=== PATIENT | male | born 1940 | race Caucasian/White ===

== ENCOUNTER → 2017-05-02 | Outpatient (CLI) | payer OTHER, BC ==
[~2017-05-02] VITALS: Ht 180.3 cm; Wt 97.5 kg
[~2017-05-02] MED LIST: ATIVAN0.5 MG PO; AZOPT OPHTH1 %/10 M1 OPHTHALMIC; COUMADIN 1MG TAB1 M1 PO; COUMADIN 5 MG TA5 M1 PO; DILAUDID2 M1 PO; DILTIAZEM 24HR240 MG; DORZOLAMIDE HCL10 ML OPHTHALMIC; FISH OIL 1,001000 M2 PO; GLUCOSAMINE HC500 MG PO; KEFLEX500 MG PO; LANOXIN; NORCO 5-325 TA1 EACH PO; OFEV150 MG PO; OMEPRAZOLE20 M1 PO; PREDNISONE 20 M20 MG PO; PROBIOTIC1 EAC1 PO; TESTIM5 GM OPHTHALMIC; TRAVATAN 0.004%5 ML; TRAVATAN Z5 ML OPHTHALMIC; XOLAIR150 MG SUBQ
--- NOTE | ~2017-05-02 | HC ---
[facility] [place] [address] CONSULTATION Name: BERNIE NAVAS Room #: REG [facility]#: [id number] Admission: 05/02/17 Attend Phys: Josef Gipson MD Discharge: Date of : 40 Report #: [id number] THIS REPORT FOR: //name// CC: Elia Gipson DATE OF SERVICE: 05/02/2017 DATE OF SERVICE: 05/02/2017 CHIEF COMPLAINT: Right hip pain with radiation to the anterior thigh, also into the posterior thigh. HISTORY OF PRESENT ILLNESS: The patient is a pleasant 77-year-old who Dr. Elia Waters asked me to see today for pain in his hip. He describes that his pain is radiating into the groin as well. It is difficult for him when he gets in and out of the car. Most of the rest of the time, the pain is dull and aching and he scores it anywhere from a 2 at its lowest to a 7/10. Descriptors include stabbing when getting up and down out of a car or out of a chair, and gnawing the rest the time. Dr. Waters felt this was lumbar radiculopathy and suggested an epidural. The patient remains on Coumadin today. He has had no other treatment so far for his pain other than remaining active. Because of his Coumadin, he has been limiting the use of nonsteroidal anti-inflammatory drugs. MEDICATIONS: Probiotic, fish oil, glucosamine, testosterone, brinzolamide eye drops, dorzolamide eye drops, travoprost, Xolair, Ofev, omeprazole, Coumadin, diltiazem. ALLERGIES: None. PAST MEDICAL HISTORY: Chronic atrial fibrillation, chronic kidney disease, chronic sinusitis, gastroesophageal reflux disease without esophagitis, history of renal colic, idiopathic pulmonary fibrosis, primary male hypogonadism, interstitial pneumonitis. SOCIAL HISTORY: He denies use of tobacco, having quit in 1969. Denies use of alcohol. He is retired. PHYSICAL EXAMINATION: GENERAL: A pleasant and outgoing 77-year-old. He is able to move from sitting to standing position and ambulate only with mild antalgic features to his gait. [facility] [address] [place] [address] CONSULTATION Name: BERNIE NAVAS Room #: REG [facility].#: [id number] Admission: 05/02/17 Attend Phys: Josef Gipson MD Discharge: Date of : 40 Report #: [id number] Range of motion of the lumbar spine is performed without significant discomfort. VITAL SIGNS: He is noted to be 5 feet 11 inches and 180 pounds, which is a BMI of 30. Blood pressure 111/83, heart rate 77, respirations 16. MUSCULOSKELETAL: Examination of the spine reveals good range of motion. Straight leg raising is negative for radiculopathy at this time. Examination of the right hip reveals pain with both internal and external rotation radiating into the anterior thigh and groin. Minimal pain over the trochanter, minimal pain over the sacroiliac joint. Sensation and strength in lower extremities are normal. Deep tendon reflexes are trace bilaterally at knees and ankles. IMPRESSION: 1. Low back pain with degenerative disease. Condition includes concern for lumbar radiculopathy following an upper lumbar distribution. 2. Atrial fibrillation. 3. Pain in the right hip, which may be hip arthropathy. This could be the cause of his underlying pain and I think we should at least get a plain film x-ray before we perform the injection. 4. Coumadin use for atrial fibrillation and needs to be discontinued prior to epidural injection. PLAN: Plan is for him to return in 1 week after we take x-rays of his hip and I will perform an epidural injection for him at that time. May consider a hip injection sometime in the future if we feel that his hip is the more likely pain generator. This is a common diagnostic challenge and injections can be both diagnostic as well as therapeutic. By: [id number] Josef Gipson MD /nt
[2017-05-02 08:55] VITALS: BP 111/83
== END | disposition home or self-care (01) ==
LOC: PAIN 06:54
DX: M51.16 Intervertebral disc disorders with radiculopathy, lumbar region (principal); M25.551 Pain in right hip; I48.2 Chronic atrial fibrillation; N18.9 Chronic kidney disease, unspecified; J32.8 Other chronic sinusitis; K21.9 Gastro-esophageal reflux disease without esophagitis; H40.9 Unspecified glaucoma; Z87.442 Personal history of urinary calculi; Z79.01 Long term (current) use of anticoagulants; Z79.899 Other long term (current) drug therapy; Z90.49 Acquired absence of other specified parts of digestive tract; Z98.890 Other specified postprocedural states; Z85.828 Personal history of other malignant neoplasm of skin; Z86.711 Personal history of pulmonary embolism

== ENCOUNTER → 2017-05-23 | Outpatient (CLI) | payer OTHER, BC ==
[~2017-05-23] VITALS: Ht 180.3 cm; Wt 93.6 kg
--- NOTE | ~2017-05-23 | HPC ---
[facility] [address] PAIN MANAGEMENT CONSULTATION Name: BERNIE NAVAS Room #: REG [facility] Jessica.#: [id number] Admission: 05/23/17 Attend Phys: Josef Gipson MD Discharge: Date of : 40 Report #: [id number] THIS REPORT FOR: //name// CC: Elia Gipson DATE OF REGISTRATION: 05/23/2017. CHIEF COMPLAINT: Followup visit for lumbar radiculopathy as well as right hip pain. HISTORY OF PRESENT ILLNESS: The patient is here today for an epidural injection. We discussed at his last visit. He has pain consistent with radiculopathy, but also has hip pain that has an exam consistent with some arthropathy. There are some degenerative changes, greater on the right seen on x-rays that I ordered on 05/02/2017. We have elected to proceed today with an epidural injection to treat his radiculopathy and will pursue the hip if response is limited. We reviewed his medications. He is on Coumadin, which was discontinued and INR today is 1.0. We will proceed today with his epidural injection under fluoroscopic guidance. Procedure has been explained. His symptoms are unchanged from his visit on 05/02/2017. PHYSICAL EXAMINATION: GENERAL: Pleasant, outgoing gentleman. He moves easily from sitting to standing position, but walks with mild antalgic gait. VITAL SIGNS: His blood pressure 125/87, heart rate 76, respirations 16. EXTREMITIES: Tenderness in the buttock cheek is noted. Sensation and strength are normal. Straight leg raising is once again negative. IMPRESSION: 1. Low back pain with radiation into the right hip with radiculopathy and lumbar distribution. 2. Atrial fibrillation. 3. Right hip arthropathy. 4. Coumadin has been discontinued with an INR of 1.0. PROCEDURE: Epidural steroid injection under fluoroscopic guidance. DESCRIPTION OF PROCEDURE: The patient was taken to the fluoroscopic suite, placed prone, skin prepped with ChloraPrep. Skin anesthetized over the L4-L5 interspace to the right of midline. A 20-gauge Tuohy epidural needle advanced in the epidural space with loss of resistance. There was no blood or CSF aspirated and injected 1.5 mL of Omnipaque with excellent spread along the L4-L5, L5-S1 lateral recess. It was then followed by 3 mL of 0.5% lidocaine mixed with 80 mg of triamcinolone. He tolerated the procedure well and was [facility] [address] [place] [address] PAIN MANAGEMENT CONSULTATION Name: BERNIE NAVAS Room #: REG CLEmilia Brown#: [id number] Admission: 05/23/17 Attend Phys: Josef Gipson MD Discharge: Date of : 40 Report #: [id number] taken to recovery room for observation. He was instructed to restart his Coumadin today. We will see him on an as needed basis in the future. <ELECTRONICALLY SIGNED> By: Josef Gipson MD 05/25/17 1551 [id number] Josef Gipson MD /niles
[2017-05-23 08:30] LABS: PROTIME 10.7 Seconds (9.3-11.4)
[2017-05-23 08:50] VITALS: BP 125/87
== END | disposition home or self-care (01) ==
LOC: PAIN 06:05
PROVIDERS: Anesthesiology Pain Medicine
DX: M54.16 Radiculopathy, lumbar region (principal); I48.91 Unspecified atrial fibrillation; Z79.899 Other long term (current) drug therapy

== ENCOUNTER → 2017-06-30 | Outpatient (CLI) | payer OTHER, BC ==
[~2017-06-30] VITALS: Ht 177.8 cm; Wt 90.1 kg
--- NOTE | ~2017-06-30 | HPC ---
[facility] [place] [address] PAIN MANAGEMENT CONSULTATION Name: BERNIE NAVAS Room #: REG ADELE Lopez.#: [id number] Admission: 06/30/17 Attend Phys: Josef Gipson MD Discharge: Date of : 40 Report #: [id number] THIS REPORT FOR: //name// CC: Elia Gipson DATE OF SERVICE: 06/30/2017 Follow up visit for lumbar radiculopathy as well as right hip pain. The patient returns to pain clinic today for a right hip injection. He had some response for his epidural injection and we as noted at last visit have identified bilateral hip degenerative changes, which were worse on the right. His pain now is more consistent with hip arthropathy with radiating pain into the groin, I have agreed to provide him with a hip injection under fluoroscopic guidance. He is remained on his Coumadin. I will use a 25-gauge needle, I believe this is safe. MEDICATIONS: Reviewed and reconciled. ALLERGIES: Noted none. PHYSICAL EXAMINATION: He really looks fit today, he is wearing his work clothes and is anxious to go to pulmonary rehab. I have told him to wait 1 day. He is able to easily get up from chair and walk, but he has pain when he tries to swing his leg on to the bed. He has pain with external rotation localized over the hip. His vital signs are blood pressure 113/77, heart rate 74, and respirations 16. IMPRESSION: 1. X-ray evidence of osteoarthritis of the hips bilateral, worse on the right. 2. Lumbar radiculopathy, resolved. 3. Atrial fibrillation. 4. Coumadin. It should be noted that the patient's BMI is 28 and he does not smoke. He is not a fall risk. PROCEDURE: Right hip injection under fluoroscopic guidance. Skin was prepped with ChloraPrep. Skin was anesthetized. A 25-gauge needle was advanced in the capsule of the right hip. It was repositioned twice until was identified. I then injected a total of 4 mL of 0.5% bupivacaine mixed with [facility] [place] [address] PAIN MANAGEMENT CONSULTATION Name: ELOISEBERNIE Room #: REG Emilia Brown#: [id number] Admission: 06/30/17 Attend Phys: Josef Gipson MD Discharge: Date of : 40 Report #: [id number] 40 mg of triamcinolone. He tolerated the procedure well and was observed for a short time and discharged. Follow up as needed. We will see how much relief he gets from the hip injection, some of this may be radiculopathy. By: [id number] Josef Gipson MD /nt
[2017-06-30 12:32] VITALS: BP 135/93
== END | disposition home or self-care (01) ==
LOC: PAIN 07:14
DX: M16.11 Unilateral primary osteoarthritis, right hip (principal); M54.16 Radiculopathy, lumbar region; I48.91 Unspecified atrial fibrillation; Z79.01 Long term (current) use of anticoagulants; Z79.891 Long term (current) use of opiate analgesic; Z79.899 Other long term (current) drug therapy; Z98.890 Other specified postprocedural states

== ENCOUNTER → 2017-10-06 | Outpatient (CLI) | payer OTHER, BC ==
[~2017-10-06] VITALS: Ht 180.3 cm; Wt 93.1 kg
--- NOTE | ~2017-10-06 | HPC ---
[facility] [place] [address] PAIN MANAGEMENT CONSULTATION Name: BERNIE NAVAS Room #: REG Emilia Lopez.#: [id number] Admission: 10/06/17 Attend Phys: Josef Gipson MD Discharge: Date of : 40 Report #: [id number] THIS REPORT FOR: //name// CC: Elia Gipson DATE OF SERVICE: 10/06/2017 Followup visit for osteoarthritis of the right hip. The patient returns to pain clinic today for repeat injection. His last injection was on 06/30. He had remarkable improvement, which has been persistent up until just a few weeks ago. Pain began to return. He would like to get an injection in lieu of more aggressive options. PQRS REVIEW: All medications were reviewed and reconciled. He is on a blood thinner, which we have agreed is not an impediment to his injection today. He is on no other pain medications at this time. All medications were prescribed by other physicians. ALLERGIES: None. PHYSICAL EXAMINATION: Vital signs, blood pressure 113/86, heart rate is 77, oxygen saturation 94%. BMI is 28.6. Pain intensity is 3 involving the lower extremity osteoarthritis of the hip. He does not use tobacco or alcohol. He does not use opioid medication. IMPRESSION: Right hip osteoarthritis. PROCEDURE: Right hip injection under fluoroscopic guidance. Skin was prepped with ChloraPrep and anesthetized. A 25-gauge needle was gently advanced into the joint capsule just at the junction of the femoral neck and head. 1 mL of Omnipaque was injected to demonstrate proper spread followed then by 4 mL of 0.5% bupivacaine mixed with 40 mg of triamcinolone. He tolerated the procedure well and was observed for 30 minutes and discharged with a followup as needed. <ELECTRONICALLY SIGNED> By: Josef Gipson MD 10/17/17 1408 [id number] Josef Gipson MD /nt
[2017-10-06 13:31] VITALS: BP 136/76
== END | disposition home or self-care (01) ==
LOC: PAIN 07:09
DX: M16.11 Unilateral primary osteoarthritis, right hip (principal); Z79.01 Long term (current) use of anticoagulants

== ENCOUNTER → 2018-09-18 | Outpatient (CLI) | payer OTHER, BC ==
[~2018-09-18] VITALS: Ht 177.8 cm; Wt 90.6 kg
[~2018-09-18] MED LIST changes: +AZITHROMYCIN500 MG PO; +ELIQUIS5 MG PO
--- NOTE | ~2018-09-18 | HPC ---
[facility] [place] [address] PAIN MANAGEMENT CONSULTATION Name: BERNIE NAVAS Room #: REG Emilia Jessica.#: [id number] Admission: 09/18/18 ������������������ Attend Phys: Josef Gipson MD Discharge: ������������������ Date of : 40 Report #: [id number] THIS REPORT FOR: //name// CC: Elia Gipson DATE OF SERVICE: 09/18/2018 CHIEF COMPLAINT: Followup visit for right hip osteoarthritis. The patient returns to pain clinic today for repeat hip injection. He has done well with these injections receiving significant benefit each time. Last injection was about 3 months ago. He is not a surgical candidate, has idiopathic interstitial pulmonary fibrosis. PQRS REVIEW: He has osteoarthritis of the right hip as his primary pain generator. He is not a fall risk and has not fallen in the last 3 months. He is on Eliquis, which we allowed him to remain on for the hip injection. He has a history of atrial fibrillation. He has not treated for hypertension, is not on opioid medication. He does not use tobacco, drinks alcohol on special occasions. PHYSICAL EXAMINATION: VITAL SIGNS: 5 feet 10 inches, 199 pounds, BMI is 28.7, blood pressure 121/84, heart rate 97, respirations 20, O2 sat 87. Pain intensity 4/10. He moves independently from sitting to standing position, ambulates with an antalgic gait. Pain is noted in the right hip with internal and external rotation. IMPRESSION: Right hip osteoarthritis. PROCEDURE: Injection, right hip under fluoroscopic guidance. PROCEDURE: He was taken to fluoroscopic suite, placed supine, skin was prepped with ChloraPrep. Skin was anesthetized over the right hip. A 22 gauge needle was gently advanced into the joint capsule. It was repositioned until an excellent arthrogram was achieved and then it was followed by 4 mL of 0.5% bupivacaine mixed with 40 mg of triamcinolone. He tolerated the procedure well. Pain was 0 in recovery room. Followup visit as needed. ��������������������������������������������� ���������������������������������������� By: ��������������������������������������������� 1757 0930 Josef Gipson MD /nt
[2018-09-18 08:55] VITALS: BP 121/84
--- NOTE | 2018-09-18 09:01 | NUR ---
Pain Clinic Assessment: 1. History of Osteoarthritis: Left Lower Extremity Right Lower Extremity History of Rheumatoid Arthritis: Not Applicable 2. Height: 5 ft. 10 in. 177.8 cm. Weight: 199.8 lb. oz. 90.629 kg. Patient's BMI: 28.7 3. Vital Signs: BP: 121/84 Pulse: 97 Resp: 20 Temp: 02 Sat: 87 ECG Mon: 4. Pain Intensity: 4 5. Fall Risk: Dizziness: N Needs help standing or walking: N Fallen in the last 3 months: N Fall risk comments: 6. Patient on Blood Thinner: ISAÍASQUIS 7. History of Hypertension: N 8. Opioid Therapy greater than 6 weeks: N Opiate Contract Signed: 9. Risk Assessment Tool Provided: Opioid Risk Tool 10. Functional Assessment Tool: 11. Recreational Drug Use: Never Drug Type: Tobacco Use: Never Smoker Tobacco Type: Amount or Packs/day: How Many Years: Alcohol Use: Yes Frequency: Special Occasions Quant:
== END | disposition home or self-care (01) ==
LOC: PAIN 06:45
DX: M16.11 Unilateral primary osteoarthritis, right hip (principal); G89.29 Other chronic pain; I48.91 Unspecified atrial fibrillation; Z79.01 Long term (current) use of anticoagulants; Z79.899 Other long term (current) drug therapy

== ENCOUNTER 2018-09-27 16:15 | Emergency (ER) | payer OTHER, BC ==
[~2018-09-27] VITALS: Ht 177.8 cm; Wt 89.8 kg
[2018-09-27] MEDS ORDERED: PREDNISONE 10 M10 MG PO (17:36)
[2018-09-27 20:21] VITALS: BP 150/105
== END 2018-09-27 20:22 | disposition home or self-care (01) ==
LOC: ER 16:15
DX: R04.0 Epistaxis (principal); I48.91 Unspecified atrial fibrillation; Z90.49 Acquired absence of other specified parts of digestive tract

== ENCOUNTER → 2019-02-08 | Outpatient (CLI) | payer OTHER, BC ==
[~2019-02-08] VITALS: Ht 177.8 cm; Wt 91.4 kg
[~2019-02-08] MED LIST changes: +PREDNISONE 10 M10 MG PO
--- NOTE | ~2019-02-08 | HPC ---
[facility] [place] [address] PAIN MANAGEMENT CONSULTATION Name: BERNIE NAVAS Room #: REG ADELE Brown#: [id number] Admission: 02/08/19 ������������������ Attend Phys: Josef Gipson MD Discharge: ������������������ Date of : 40 Report #: [id number] THIS REPORT FOR: //name// CC: Josef Duarte DATE OF SERVICE: 02/08/2019 Followup visit for osteoarthritis, right hip. The patient is here today for hip injection. He has done well with these injections in the past. He is hoping to avoid surgery. He reports that the pain intensity varies with activities. Worst position for him is prolonged sitting. Riding in a car is difficult. Today, the pain is not so severe, it is 1/10 but it can be much higher than that depending on activities. MEDICATIONS: Reviewed and reconciled including prednisone, Eliquis, azathioprine, probiotic, glucosamine, eyedrops, omeprazole, and diltiazem. PQRS REVIEW: Positive for osteoarthritis involving both hips, right worse than left. His height is 5 feet 10 inches, 210 pounds with a BMI of 28.9. His vital signs are blood pressure 124/74, heart rate 90, respirations 18, O2 sat 93. He has idiopathic pulmonary fibrosis and is on nasal oxygen. Pain intensity at this moment 1/10. He is not a fall risk. His blood thinner, Eliquis has not been discontinued and I have agreed to perform the hip injection while on the medication. He denies history of hypertension, and he also denies use of opioid medications. He did complete an opioid risk tool, however, and is considered at low risk should we decide to use them for treatment. SOCIAL HISTORY: He denies use of tobacco and enjoys a glass of alcohol occasionally in a social setting. PHYSICAL EXAMINATION: VITAL SIGNS: As noted above. GENERAL: Pleasant gentleman. CHEST: Reveals inspiratory and expiratory crackles and wheezing. CARDIAC: Rhythm is irregularly irregular consistent with atrial fibrillation. EXTREMITIES: Examination of the right hip reveals significant pain with hip flexion and internal and external rotation. Pain radiates down the anterior thigh. [facility] [address] [place] [address] PAIN MANAGEMENT CONSULTATION Name: BERNIE NAVAS Mariely [id number] Admission: 02/08/19 ������������������ Attend Phys: Josef Gipson MD Discharge: ������������������ Date of : 40 Report #: [id number] IMPRESSION: 1. Right hip osteoarthritis. 2. Idiopathic pulmonary fibrosis. 3. Atrial fibrillation, on anticoagulation therapy. 4. Chronic kidney disease. RECOMMENDATION: He should avoid nonsteroidal anti-inflammatory drugs. Injection of triamcinolone seems quite reasonable. PROCEDURE: Right hip injection under fluoroscopic guidance. He was taken to the fluoroscopic suite and placed supine. Skin was prepped with ChloraPrep overlying the right hip. A 25-gauge needle was gently advanced into the joint capsule below the junction of the head and the neck of the femur. I injected 0.25 mL of Omnipaque to demonstrate an arthrogram. This was then followed by 3 mL of 0.5% bupivacaine mixed with 40 mg of triamcinolone. He tolerated the procedure well and was observed for 30 minutes and discharged. There were no complications. Pain score 0 at discharge. ��������������������������������������������� ���������������������������������������� By: ��������������������������������������������� [id number] Jsoef Gipson MD /nt
[2019-02-08 12:52] VITALS: BP 124/74
--- NOTE | 2019-02-08 13:02 | NUR ---
Pain Clinic Assessment: 1. History of Osteoarthritis: Left Lower Extremity Right Lower Extremity History of Rheumatoid Arthritis: Not Applicable 2. Height: 5 ft. 10 in. 177.8 cm. Weight: 201.6 lb. oz. 91.445 kg. Patient's BMI: 28.9 3. Vital Signs: BP: 124/74 Pulse: 90 Resp: 18 Temp: 02 Sat: 93 ECG Mon: 4. Pain Intensity: 1 5. Fall Risk: Dizziness: N Needs help standing or walking: N Fallen in the last 3 months: N Fall risk comments: 6. Patient on Blood Thinner: ISAÍASQUSAROJ 7. History of Hypertension: N 8. Opioid Therapy greater than 6 weeks: N Opiate Contract Signed: 9. Risk Assessment Tool Provided: LOW RISK 0/3 10. Functional Assessment Tool: 11. Recreational Drug Use: Never Drug Type: Tobacco Use: Never Smoker Tobacco Type: Amount or Packs/day: How Many Years: Alcohol Use: Yes Frequency: Monthly Quant: 1
== END | disposition home or self-care (01) ==
LOC: PAIN 06:46
DX: M16.11 Unilateral primary osteoarthritis, right hip (principal); G89.29 Other chronic pain; I48.91 Unspecified atrial fibrillation; N18.9 Chronic kidney disease, unspecified; Z79.01 Long term (current) use of anticoagulants; Z79.899 Other long term (current) drug therapy; Z87.09 Personal history of other diseases of the respiratory system

== ENCOUNTER → 2019-03-15 | Outpatient (CLI) | payer OTHER, BC ==
[~2019-03-15] VITALS: Ht 180.3 cm; Wt 88.9 kg
[~2019-03-15] MED LIST changes: +TRAMADOL 50 MG50 MG PO; +ZANAFLEX4 MG PO
--- NOTE | ~2019-03-15 | HPC ---
[facility] [place] [address] PAIN MANAGEMENT CONSULTATION Name: BERNIE NAVAS Room #: REG STEFFEmilia Brown#: [id number] Admission: 03/15/19 Attend Phys: Josef Gipson MD Discharge: Date of : 40 Report #: [id number] THIS REPORT FOR: //name// CC: Physician staff Josef SPENCE DATE OF SERVICE: 03/15/2019 Followup visit for recurring lumbar radiculopathy. The patient returns to pain clinic today and presenting with symptoms consistent with lumbar radiculopathy. The pain is in the low back and radiates down his leg all the way into the lower leg. The intensity is significant with activities. He has become much more limited in his activities. His pulmonary disease is worsening. He has interstitial fibrosis. He is now on oxygen around the clock. He normally takes Eliquis, but discontinued it for 5 days in anticipation of an injection today. PQRS REVIEW: 1. History of diffuse osteoarthritis involving bilateral lower extremities, hips and knees. He has been treated in our clinic for this in the past. 2. His BMI is stable at 27.3. 3. Vital signs: Blood pressure is 125/79, heart rate 73, respirations 14. He has 2 liters of nasal cannula and his oxygen is 100%, with supplement. 4. Pain intensity is 1 sitting, 8/10 with activities including simple standing. 5. He is a fall risk and needs help standing and walking. 6. Blood thinner, Eliquis, discontinued for 5 days. 7. Hypertension. 8. No opioid therapy at this time. 9. Risk assessment tool completed scoring 0. 10. Functional assessment scores 20/70. 11. Denies use of tobacco and drinks alcohol occasionally in a social setting. PHYSICAL EXAMINATION: GENERAL: He is a very pleasant gentleman, little short of breath even with the nasal oxygen. VITAL SIGNS: Blood pressure 125/79, heart rate 73. HEENT: His pupils are equal, round, reactive to light. EOMs are intact. Mucous membranes are moist. Nasal cannula in place. NECK: Supple. There is no adenopathy. CHEST: Clear, although there are diffuse crackles and wheezes on both [facility] [address] [place] [address] PAIN MANAGEMENT CONSULTATION Name: BERNIE NAVAS Room #: REG [facility].#: [id number] Admission: 03/15/19 Attend Phys: Josef Gipson MD Discharge: Date of : 40 Report #: [id number] inspiration and expiration. CARDIAC: Rhythm is irregularly irregular consistent with atrial fibrillation. ABDOMEN: Soft, no organomegaly. BACK: Tender across the lumbosacral segment. Positive straight leg raising is noted primarily on the right following an L3-L4, L5-S1 distribution. We have x-rays of the lumbar spine but they are relatively distant, dating back to 2017, which shows multiple levels of bilateral neural foraminal stenosis and multilevel spinal stenosis, particularly at L3-L4 with the thecal sac measures 5 mm in AP diameter. IMPRESSION: 1. Lumbar radiculopathy related to spinal stenosis and neural foraminal narrowing. 2. Pulmonary fibrosis, on oxygen therapy. 3. Severe and significant diffuse osteoarthritis involving bilateral hips. 4. Atrial fibrillation, off anticoagulation therapy for injection. 5. Chronic kidney disease. PLAN AND PROCEDURE: Lumbar epidural injection at L4-L5 under fluoroscopic guidance. He was taken to fluoroscopic suite, placed prone, skin prepped with ChloraPrep. Skin was anesthetized over the L4-L5 interspace and a 20-gauge Tuohy epidural needle advanced into the epidural space with loss of resistance technique. There was no blood or CSF aspirated. A 1 mL of Omnipaque was injected. Good spread of dye was observed into the epidural space, was followed by 3 mL of 0.5% lidocaine mixed with 80 mg triamcinolone. He tolerated the procedure well and was observed for 45 minutes and discharged. Followup visit planned in the pain clinic on an as needed basis. By: [id number] Josef Gipson MD /nt
[2019-03-15 09:36] VITALS: BP 125/79
--- NOTE | 2019-03-15 09:53 | NUR ---
Pain Clinic Assessment: 1. History of Osteoarthritis: Left Lower Extremity Right Lower Extremity History of Rheumatoid Arthritis: Not Applicable 2. Height: 5 ft. 11 in. 180.3 cm. Weight: 196.0 lb. oz. 88.905 kg. Patient's BMI: 27.3 3. Vital Signs: BP: 125/79 Pulse: 73 Resp: 14 Temp: 02 Sat: 100 ECG Mon: 4. Pain Intensity: 1 SITTING 8 ACTIVITY 5. Fall Risk: Dizziness: N Needs help standing or walking: Y Fallen in the last 3 months: N Fall risk comments: 6. Patient on Blood Thinner: ISAÍASQUIS 7. History of Hypertension: N 8. Opioid Therapy greater than 6 weeks: N Opiate Contract Signed: 9. Risk Assessment Tool Provided: LOW RISK 0/3 10. Functional Assessment Tool: 11. Recreational Drug Use: Never Drug Type: Tobacco Use: Never Smoker Tobacco Type: Amount or Packs/day: How Many Years: Alcohol Use: Yes Frequency: Quant:
== END | disposition home or self-care (01) ==
LOC: PAIN 06:50
DX: M54.16 Radiculopathy, lumbar region (principal); M48.061 Spinal stenosis, lumbar region without neurogenic claudication; M99.73 Connective tissue and disc stenosis of intervertebral foramina of lumbar region; J84.10 Pulmonary fibrosis, unspecified; M16.0 Bilateral primary osteoarthritis of hip; I48.91 Unspecified atrial fibrillation; I12.9 Hypertensive chronic kidney disease with stage 1 through stage 4 chronic kidney disease, or unspecified chronic kidney disease; N18.9 Chronic kidney disease, unspecified; Z79.01 Long term (current) use of anticoagulants

== ENCOUNTER → 2019-07-23 | Outpatient (CLI) | payer OTHER, BC ==
[~2019-07-23] MED LIST changes: +LASIX 20 MG TAB20 MG PO; +POTASSIUM20
== END ==
LOC: SJCVC 14:34
DX: I48.21 Permanent atrial fibrillation (principal); E78.5 Hyperlipidemia, unspecified; J84.112 Idiopathic pulmonary fibrosis; G47.33 Obstructive sleep apnea (adult) (pediatric); R94.31 Abnormal electrocardiogram [ECG] [EKG]; Z79.01 Long term (current) use of anticoagulants

== ENCOUNTER → 2019-08-27 | Outpatient (CLI) | payer OTHER, BC ==
[~2019-08-27] VITALS: Ht 180.3 cm; Wt 81.8 kg
--- NOTE | ~2019-08-27 | HPC ---
[facility] [place] [address] PAIN MANAGEMENT CONSULTATION Name: BERNIE NAVAS Room #: REG [facility]..#: [id number] Admission: 08/27/19 Attend Phys: Josef Gipson MD Discharge: Date of : 40 Report #: [id number] THIS REPORT FOR: cc: Chelo Davila APRN,Josef Polanco APRN, MD ~ THIS REPORT FOR: //name// CC: Cehlo Gipson DATE OF SERVICE: 08/27/2019 Followup visit for spinal stenosis with lumbar radiculopathy. The patient returns to pain clinic today for repeat epidural injection. He continues to do well with these injections. His last injection provided almost 100% pain relief for several months. Pain is now returning. He has a history of multilevel spinal stenosis and has responded very nicely to injections that we performed for him at the level of L4-L5. At L3-L4, his thecal sac measures 5 mm in diameter. I have chosen to inject just below that level. He has discontinued his Eliquis in anticipation of his injection. He is wearing oxygen around the clock and has for quite some time now. His breathing is comfortable today and his O2 sat is monitored. Whenever he wants, he has O2 sat monitor that he carries with him. PQRS: Positive for osteoarthritis involving hips and knees. Both lower extremities are affected. His BMI is 27.3. Blood pressure 125/79, heart rate is 73, respirations 14, O2 sat 100. His pain is 8 with activity, 1 when he is sitting. He denies falls within the last 3 months. He is in a wheelchair in our clinic and is very cautious. The Eliquis was discontinued on 08/21/2019. He has no history of hypertension. He is on oxygen, but does not use opioids. He has completed an opioid risk tool with a score of 0. Functional assessment tool is actually not too bad at 20, suggesting that pain does not interfere as much as it does in others. He denies use of tobacco, but drinks alcohol occasionally in the social setting. PHYSICAL EXAMINATION: As noted above. GENERAL: Pleasant, alert and oriented. CHEST: Clear with some crackles and wheezes bilaterally. HEART: Irregular rhythm consistent with atrial fibrillation. BACK: No tender across the lumbosacral segment with positive straight leg raising bilaterally today. At last visit, it was more on the right, but the pain seems to be pretty well symmetrical today. [facility] [address] [place] [address] PAIN MANAGEMENT CONSULTATION Name: BERNIE NAVAS Room #: REG [facility] Stephanie#: [id number] Admission: 08/27/19 Attend Phys: Josef Gipson MD Discharge: Date of : 40 Report #: [id number] IMPRESSION: 1. Lumbar radiculopathy related to spinal stenosis and neural foraminal narrowing. 2. Atrial fibrillation, on anticoagulation therapy. He discontinued his Eliquis in anticipation of injection 6 days ago. 3. Severe and significant osteoarthritis involving hips. 4. Pulmonary fibrosis. 5. Chronic kidney disease. PROCEDURE: Epidural steroid injection L4-L5 under fluoroscopic guidance. DESCRIPTION OF PROCEDURE: The patient was taken to fluoroscopic suite, placed prone, skin prepped with ChloraPrep. Skin anesthetized over the L4-L5 interspace. A 20-gauge Tuohy epidural needle advanced in first attempt into the epidural space with loss of resistance technique. There was no blood or CSF aspirated. A 1 mL of Omnipaque injected. Good spread of dye observed in the epidural space followed by 3 mL of 0.5% lidocaine mixed with 80 mg triamcinolone. He tolerated the procedure well and was observed for 45 minutes and discharged. Follow up as needed. By: [id number] Josef Gipson MD /nt
[2019-08-27 14:06] VITALS: BP 128/91
--- NOTE | 2019-08-27 14:20 | NUR ---
Pain Clinic Assessment: 1. History of Osteoarthritis: Left Lower Extremity Right Lower Extremity History of Rheumatoid Arthritis: Not Applicable 2. Height: 5 ft. 11 in. 180.3 cm. Weight: 180.4 lb. oz. 81.829 kg. Patient's BMI: 25.2 3. Vital Signs: BP: 128/91 Pulse: 88 Resp: 14 Temp: 02 Sat: 99 ECG Mon: 4. Pain Intensity: 2 5. Fall Risk: Dizziness: N Needs help standing or walking: Y Fallen in the last 3 months: N Fall risk comments: 6. Patient on Blood Thinner: STEFANIA 7. History of Hypertension: N 8. Opioid Therapy greater than 6 weeks: N Opiate Contract Signed: 9. Risk Assessment Tool Provided: LOW RISK 0/3 10. Functional Assessment Tool: 11. Recreational Drug Use: Never Drug Type: Tobacco Use: Former Smoker Tobacco Type: Amount or Packs/day: How Many Years: Alcohol Use: Yes Frequency: Monthly Quant:
== END | disposition home or self-care (01) ==
LOC: PAIN 06:58
DX: M54.16 Radiculopathy, lumbar region (principal); M48.061 Spinal stenosis, lumbar region without neurogenic claudication; I48.91 Unspecified atrial fibrillation; M16.0 Bilateral primary osteoarthritis of hip; N18.9 Chronic kidney disease, unspecified; Z98.890 Other specified postprocedural states; Z79.01 Long term (current) use of anticoagulants; Z79.899 Other long term (current) drug therapy

== ENCOUNTER 2019-10-06 06:07 | Inpatient (IN) | payer OTHER, BC ==
[~2019-10-06] VITALS: Ht 177.8 cm; Wt 80.7 kg
--- NOTE | ~2019-10-06 | EMS ---
[place] [address] EMS Patient Care Report Name: BERNIE NAVAS Room #: REG Stephanie#: [id number] Admission: 10/06/19 Attend Phys: Discharge: Date of : 40 Report #: [id number] THIS REPORT FOR: //name// Report Transmitted: 10/06/2019 06:26 EMS Care Summary [place], [place]/[facility] Incident [id number] @ 10/06/2019 05:28 Incident Location [address] [place] [address] Patient BERNIE NAVAS Male, 79 Years 1940 Patient Address [address] [place] [address] Patient History Idiopathic Pulmonary Fibrosis (IPF), Patient Allergies No known allergies, Chief Complaint SHORTNESS OF BREATH Disposition Transported [place] Dispatch Reason Breathing Problem Transported To [facility] Narrative ARRIVED ON SCENE FOR 79 YEAR OLD MALE PT IN RESPIRATORY FAILURE. EMS MET THE AT THE DOOR AND ASKED IF THE PT HAD ANY FLU LIKE SYMPTOMS AND SHE DENIED ANY SYMPTOMS. PT CONTACT WAS MADE WITH THE PUMPER CREW AND THE PT'S FAMILY. PT WAS ALERT AND ORIENTATED TIMES 4. PT WAS LAYING IN HIS BED ON 10 LITERS VIA NASAL CANNULA. PT STATED HE IS IN END STAGE PULMONARY FIBROSIS AND IS NORMALLY ON 6 LITERS VIA NASAL CANNULA CONTINUOUSLY. PT WAS HOOKED [place] [address] EMS Patient Care Report Name: BERNIE NAVAS Room #: REG [facility]#: [id number] Admission: 10/06/19 Attend Phys: Discharge: Date of : 40 Report #: [id number] PLACED ON CPAP ON SCENE. PT HAD AN INITIAL O2 SAT OF 80. PT WAS PLACED ON A BRAYAN CAD DESIGN ENGINEER AND WAS LIFTED VIA A 4 PERSON LIFT AND PLACED ON THE COT IN A POSITION OF COMFORT AND SECURED VIA 2 SEATBELTS. PT WAS TRANSPORTED TO AND LOADED INTO THE AMBULANCE. PT HAD AN IV ESTABLISHED. PT HAD SOLU-MEDROL AND A DUONEB BREATHING TREATMENT ADMINISTERED. PT WAS TRANSPORTED EMERGENTLY TO [facility] PER PT CHOICE. PT WAS TAKEN TO ER BED 12 WHERE TRANSPORT REPORT WA GIVEN TO THE RECEIVING STAFF. ER NURSE SIGNED FOR TRANSFER OF CARE AND EMS WENT BACK INTO SERVICE. Initial Vitals @05:47P: 107,SpO2: 54, @05:52P: 105,SpO2: 57, @05:50P: 110,SpO2: 60, @05:55P: 105,SpO2: 59,DE Suspected: false @06:01P: 98,R: 26,BP: 149/79,Pain: 0/10,GCS: 15,SpO2: 68,Revised Trauma: 12, @05:39P: 116,Glucose: 110,SpO2: 58, @05:38P: 109,R: 26,BP: 147/89,Pain: 0/10,GCS: 15,SpO2: 80,Revised Trauma: 12, Assessments @05:38MENTAL:Person Oriented,Time Oriented,Place Oriented,Event Oriented,SKIN:Diaphoresis,HEENT:Eyes: Right Pupil: 3-mm,Eyes: Left Pupil: 3-mm,Head/Face: No Abnormalities,Neck/Airway: No Abnormalities,LUNG SOUNDS:General: No Abnormalities,Left Upper: No Abnormalities,Right Upper: No Abnormalities,Left Lower: No Abnormalities,Right Lower: No Abnormalities,ABDOMEN:General: No Abnormalities,Left Upper: No Abnormalities,Right Upper: No Abnormalities,Left Lower: No Abnormalities,Right Lower: No Abnormalities,PELVIS//GI:No Abnormalities,EXTREMITIES:Left Leg: Weakness,Right Leg: Weakness,Right Arm: Weakness,Left Arm: Weakness,PULSE:NEURO:No Abnormalities,@05:55MENTAL:Event Oriented,Place Oriented,Person Oriented,Time Oriented,SKIN:Diaphoresis,HEENT:Eyes: Left Pupil: 3-mm,Eyes: Right Pupil: 3-mm,Head/Face: No Abnormalities,Neck/Airway: No Abnormalities,LUNG SOUNDS:General: No Abnormalities,Left Upper: No Abnormalities,Right Upper: No Abnormalities,Left Lower: No Abnormalities,Right Lower: No Abnormalities,ABDOMEN:General: No Abnormalities,Left Upper: No Abnormalities,Right Upper: No Abnormalities,Left Lower: No Abnormalities,Right Lower: No Abnormalities,PELVIS//GI:No Abnormalities,EXTREMITIES:Left Leg: Weakness,Right Leg: Weakness,Left Arm: Weakness,Right Arm: Weakness,PULSE:NEURO:No Abnormalities, Impression Respiratory Failure Procedures @05:5512-Lead ECGResponse: UnchangedSucceeded@05:38ALS AssessmentResponse: UnchangedSucceeded@05:40Oxygen FlowRate: 8 Device: Nebulizer Response: UnchangedSucceeded@05:40CPAP FlowRate: 10 Response: [facility] [address] [place] [address] EMS Patient Care Report Name: BERNIE NAVAS Room #: REG ALIYAH Brown#: [id number] Admission: 10/06/19 Attend Phys: Discharge: Date of : 40 Report #: [id number] UnchangedSucceeded@05:49Saline Lock 5cc (18 ga) Site: Antecubital-LeftResponse: UnchangedSucceeded@05:51Solu-Medrol - 125 Milligrams (mg) - Intravenous (IV)Response: Unchanged@05:40Atrovent - 0.5 Milligrams (mg) - NebulizedResponse: Unchanged@05:40Albuterol - 2.5 Milligrams (mg) - NebulizedResponse: Unchanged Timeline 05:27,Call Received 05:27,Dispatch Notified 05:28,Dispatched 05:30,En Route 05:36,On Scene 05:38,At Patient 05:38,ALS Assessment,Response: UnchangedSucceeded, 05:38,BP: 147/89 M,PULSE: 109,RR: 26 R,SPO2: 80 Ox,ETCO2: ,BG: ,PAIN: 0,GCS: 15, 05:39,BP: / M,PULSE: 116,RR: R,SPO2: 58 Ox,ETCO2: ,B,PAIN: ,GCS: , 05:40,CPAP FlowRate: 10 Response: UnchangedSucceeded, 05:40,Oxygen FlowRate: 8 Device: Nebulizer Response: UnchangedSucceeded, 05:40,Atrovent - 0.5 Milligrams (mg) - Nebulized,Response: Unchanged 05:40,Albuterol - 2.5 Milligrams (mg) - Nebulized,Response: Unchanged 05:47,BP: / M,PULSE: 107,RR: R,SPO2: 54 Ox,ETCO2: ,BG: ,PAIN: ,GCS: , 05:49,Saline Lock 5cc 18 ga Site: Antecubital-Left,Response: UnchangedSucceeded, 05:50,BP: / M,PULSE: 110,RR: R,SPO2: 60 Ox,ETCO2: ,BG: ,PAIN: ,GCS: , 05:51,Solu-Medrol - 125 Milligrams (mg) - Intravenous (IV),Response: Unchanged 05:51,Depart Scene 05:52,BP: / M,PULSE: 105,RR: R,SPO2: 57 Ox,ETCO2: ,BG: ,PAIN: ,GCS: , 05:55,12-Lead ECG,Response: UnchangedSucceeded, 05:55,BP: / M,PULSE: 105,RR: R,SPO2: 59 Ox,ETCO2: ,BG: ,PAIN: ,GCS: , 05:56,At Destination 06:01,BP: 149/79 M,PULSE: 98,RR: 26 R,SPO2: 68 Ox,ETCO2: ,BG: ,PAIN: 0,GCS: 15, 06:18,Call Closed Disclaimer v1.1 Copyright 2020 [employer] This EMS Care Summary contains data elements from the applicable legal record (which may be displayed differently). It is designed to provide pertinent information for the following purposes: continuity of care, clinical quality, and state data reporting. The complete legal record is available to ED staff and administrators of the receiving hospital in [employer]'s Patient Tracker. All data is provided "as is."
[2019-10-06] MEDS ORDERED: CELLCEPT500 MG PO (06:49)
[2019-10-06] MEDS ORDERED: MSL20MG/ML PO (06:51)
[2019-10-06] MEDS ORDERED: XANAX 0.25 MG0.25 MG PO (06:53)
[2019-10-06] MEDS ORDERED: PROSCAR 5MG TABL5 MG PO (06:54)
[2019-10-06 06:55] LABS: ABSOLUTE NEUTROPHILS 12.3 thou/uL (1.4-8.2); BASOPHILS 0.1 % (0.0-2.0); HEMOGLOBIN 10.2 gm/dL (14.0-18.0); MCH 34.5 pg (26.0-34.0); MCHC 32.8 g/dL (28.0-37.0); MCV 105.2 fL (80.0-100.0); MONOCYTES 5.2 % (1.0-8.0); PLATELET COUNT 201 thou/uL (150-400); POLYS 88.7 % (36.0-66.0); RBC 2.95 mil/uL (4.50-6.00); RDW 16.1 % (10.5-14.5); WBC 13.9 thou/uL (4.0-11.0)
[2019-10-06] MEDS ORDERED: YUPELRI175 MCG/3 INH (06:55)
[2019-10-06] MEDS ORDERED: QVAR REDIHALE10.6 G1 INH (06:57)
[2019-10-06] MEDS ORDERED: FLONASE 0.05%50 MCG NASAL (06:58)
[2019-10-06] MEDS ORDERED: TORSEMIDE5 MG PO (06:59)
[2019-10-06 07:00] LABS: ANION GAP 2 mmol/L (7-16); BUN 27 mg/dL (7-18); CHLORIDE 94 mmol/L (98-107); CO2 40 mmol/L (21-32); CREATININE 0.9 mg/dL (0.7-1.3); GLUCOSE 254 mg/dL (74-106); SODIUM 136 mmol/L (136-145)
[2019-10-06] MEDS ORDERED: DILTIAZEM ER180 M2 PO (07:00)
[2019-10-06 07:11] LABS: ALBUMIN 3.2 g/dL (3.4-5.0); DIRECT BILIRUBIN 0.2 mg/dL (<0.1-0.2); SGOT 34 U/L (15-37); SGPT 44 U/L (30-65); TOTAL BILIRUBIN 1.1 mg/dL (<0.1-1.0); TOTAL PROTEIN 5.9 g/dL (6.4-8.2); TROPONIN-I <0.06 ng/mL (<0.06)
[2019-10-06 09:21] LABS: BE(vivo) 10.6 mmol/L (-2 to +3); HCO3 38.3 mmol/L (22.0-26.0); PO2 80.6 mmHg (80.0-100.0); pH 7.369 (7.360-7.450); sO2 95.2 % (92.0-98.0)
[2019-10-06 10:11] VITALS: BP 123/75
[2019-10-06 10:15] VITALS: BP 121/69
--- NOTE | 2019-10-06 11:01 | NUR ---
pt arrived at 1045. assessed, dr delgado in the room. when pt's talking o2 sats drop to 70, when quiet and concentrated on breathing, came up to 90% on 8L o2, poc discussed, pt verbalized understanding. call light in lap. will monitor
[2019-10-06 11:04] VITALS: BP 142/83
[2019-10-06 11:36] LABS: PCO2 67.9 mmHg (35.0-45.0)
--- NOTE | 2019-10-06 12:14 | EKG ---
[facility] [place] [address] ELECTROCARDIOGRAM REPORT Name: BERNIE NAVAS Room #: 349-I ADM IN M.R.#: [id number] Admission: 10/06/19 Attend Phys: Yamila Green MD Discharge: Date of : 40 Report #: [id number] THIS REPORT FOR: cc: [facility] - Clinic physician unknown [facility] - Clinic physician unknown Tommy Ruiz MD ~ THIS REPORT FOR: //name// [facility] ED Test Date: 2019-10-06 Test Time: 07:15:06 Pat Name: BERNIE NAVAS Department: Room: [facility] Gender: M Production Line Technician: MARILYN : 1940 Requested By: Georgia Jin Order Number: [id number] MD: Tommy Ruiz Measurements Intervals [place] Rate: 90 P: MA: QRS: -18 QRSD: 80 T: 117 QT: 424 QTc: 519 Interpretive Statements Atrial fibrillation Inferior infarct, old Lateral leads are also involved Compared to ECG 04/25/1998 06:41:00 Myocardial infarct finding now present Electronically Signed On 10-06-2019 12:13:09 CDT by Tommy Ruiz [email or web address] <ELECTRONICALLY SIGNED> By: Tommy Ruiz MD 10/06/19 1213 4 4 Tommy Ruiz MD /EPI
--- NOTE | 2019-10-06 13:43 | NUR ---
REC REPORT ON PT AT OUR PARTIAL SHIFT CHANGE, HE'S A&0X4, SPOKE WITH PULMONARY PHYSICIAN, DOES DESAT DURING SPEECH, CLIFFORD PLACED SUCCESSFULLY WITH RETURN URINE. ENCOURAGED PT TO USE CALL LIGHT FOR ANY NEEDS. HE DID RETURN DEMO W/CALL LIGHT. SEE SEPARATE INTERVENTIONS FOR ASSESSMENTS.
[2019-10-06] MEDS ORDERED: PROAIR HFA8.5 GM INH (17:21)
[2019-10-06] MEDS ORDERED: ESCITALOPRA5 MG/5 ML PO (17:22)
[2019-10-06 17:42] VITALS: BP 142/73
[2019-10-06 19:28] VITALS: BP 152/101
[2019-10-06 20:35] VITALS: BP 150/96
[2019-10-07 03:00] VITALS: BP 156/60
--- NOTE | 2019-10-07 04:20 | NUR ---
continues to be oriented x4, he is easily aroused. continues on iv fluids. denies pain. catheter, makig adequate urine. encouraged turns,and moving around in bed and deep breathing. his keny ernesto has checked on him by phone tonight.
[2019-10-07 06:31] LABS: HEMATOCRIT 29.7 % (42.0-52.0); HEMOGLOBIN 9.9 gm/dL (14.0-18.0); MCH 34.9 pg (26.0-34.0); MCHC 33.4 g/dL (28.0-37.0); MCV 104.5 fL (80.0-100.0); PLATELET COUNT 169 thou/uL (150-400); RBC 2.85 mil/uL (4.50-6.00); RDW 16.2 % (10.5-14.5); WBC 11.5 thou/uL (4.0-11.0)
[2019-10-07 06:44] LABS: ANION GAP < 0 mmol/L (7-16); BUN 22 mg/dL (7-18); CALCIUM 8.9 mg/dL (8.5-10.1); CHLORIDE 95 mmol/L (98-107); CO2 41 mmol/L (21-32); CREATININE 0.7 mg/dL (0.7-1.3); GLUCOSE 157 mg/dL (74-106); MAGNESIUM 1.7 mg/dL (1.8-2.4); POTASSIUM 4.4 mmol/L (3.5-5.1); SODIUM 134 mmol/L (136-145)
[2019-10-07 08:05] LABS: ABSOLUTE NEUTROPHILS 10.9 thou/uL (1.4-8.2); ANISOCYTOSIS 1+; METAMYELOCYTES 2 %; NUCLEATED RBCS 2 /100WBC
[2019-10-07 08:06] LABS: POLYCHROMASIA OCCASIONAL
[2019-10-07 08:07] LABS: MACROCYTES 1+
[2019-10-07 08:23] VITALS: BP 167/118
--- NOTE | 2019-10-07 14:16 | NUR ---
ATTEMPTED TO TRANSFER PATIENT FROM BED TO RECLINER. HE SAT AT SIDE OF BED FOR JUST A SECOND AND STATED HE IS TOO SHORT OF BREATH TO TRANSFERS TO CHAIR. STATES HE PREFERS TO STAY IN BED IT IS MORE CONVINIENT. HE IS NOTED TO BE HYPERVENTILATION. PATIENT IS NOW SLEEPING. WILL CONT WITH PLAN OF CARE.
[2019-10-07 15:11] VITALS: BP 173/113
[2019-10-07 19:32] VITALS: BP 149/109
--- NOTE | 2019-10-07 21:23 | NUR ---
pt is very drowsy tonight. he is able to swallow pills, but he is having a hard time keeping his eyes open. i have his bed elevated 30 degrees to allow for ease of breathing. o2 sat at this time is 100 % on the 13.0 liters n/c
--- NOTE | 2019-10-07 23:27 | NUR ---
lab notified that patient is covid 19 negative. critical result charted.
[2019-10-08 02:44] VITALS: BP 143/97
--- NOTE | 2019-10-08 02:45 | NUR ---
keeping o2 sat at 100% on 13.0 liters, titrated down to 11.0 l n/c. denies pain.transfered to at 0215. family will be notified of move off of the covid rule our floor this morning. low urine output, needs encouraging with fluids. careplan reviewed. encouraged turns, he gets panic/anxity when layed flat and turned. needs premedicate for positioning.
[2019-10-08 05:49] LABS: CALCIUM 8.5 mg/dL (8.5-10.1); CREATININE 0.8 mg/dL (0.7-1.3); POTASSIUM 4.1 mmol/L (3.5-5.1)
[2019-10-08 07:17] VITALS: BP 127/81
[2019-10-08 08:10] VITALS: BP 127/81
--- NOTE | 2019-10-08 10:56 | NUR ---
INITIAL ASSESSMENT: MINISTERIO received call from Kitty [facility] stating pt is currently on service with their [facility] Program. Pt with hx of pulmonary fibrosis. Pt was admitted from home. Pt was on [facility] and transferred to CCU after COVID-19 test was negative. Pt's requesting evaluation for [facility]. MINISTERIO spoke with pt's , Geri, via phone. Introduced role of SW. Pt has been able to walk short distances with a walker at home. Pt has a w/c and hospital bed. Pt's states that pt is on 20L of O2 at home. Pt's states that the plan is for pt to either go to the hospice house or to a nursing facility with hospice services. SW explained admission criteria for the hospice house. Pt's verbalized understanding. MINISTERIO faxed hospice house referral to Hospice. Awaiting evaluation or peer to peer to be completed. Physician to address code status with pt/family. Pt's to provide update to family regarding pt's COVID test results and plan of care. MINISTERIO is following to assist as needed with discharge planning.
[2019-10-08 11:08] LABS: BE(vivo) 10.1 mmol/L (-2 to +3); HCO3 37.9 mmol/L (22.0-26.0); PCO2 69.8 mmHg (35.0-45.0); PO2 63.1 mmHg (80.0-100.0); pH 7.353 (7.360-7.450)
[2019-10-08 11:27] VITALS: BP 127/78
--- NOTE | 2019-10-08 14:32 | NUR ---
DISCHARGING TO [facility]. REPORT CALLED. COORDINATED WITH ADULT SON AND SO THEY CAN SEE PATIENT DURING TRANSPORT. WILL PREMED FOR TRIP WITH MORPHINE IVP, ALREADY ORDERED. AFIB PER TELE, DISCONTINUED. WILL CONTINUE TO FOLLOW CLOSELY.
[2019-10-08 14:48] VITALS: BP 137/85
== END 2019-10-08 16:15 | disposition home health service (06) | DRG 189 ==
LOC: ER 06:07 → 2N 09:15 → EROBS 09:15 → 3W 10:15 → 2N 10-08 02:16
PROVIDERS: Emergency Medicine; Internal Medicine Pulmonary Disease; ADMIT Internal Medicine
DX: J96.22 Acute and chronic respiratory failure with hypercapnia (principal); I48.20 Chronic atrial fibrillation, unspecified; E87.3 Alkalosis; J96.21 Acute and chronic respiratory failure with hypoxia; J84.89 Other specified interstitial pulmonary diseases; I12.9 Hypertensive chronic kidney disease with stage 1 through stage 4 chronic kidney disease, or unspecified chronic kidney disease; N18.9 Chronic kidney disease, unspecified; K21.9 Gastro-esophageal reflux disease without esophagitis; E11.22 Type 2 diabetes mellitus with diabetic chronic kidney disease; S51.811A Laceration without foreign body of right forearm, initial encounter; W18.39XA Other fall on same level, initial encounter; G47.33 Obstructive sleep apnea (adult) (pediatric); F32.9 Major depressive disorder, single episode, unspecified; F41.9 Anxiety disorder, unspecified; R63.4 Abnormal weight loss; G47.00 Insomnia, unspecified; Z66 Do not resuscitate; J84.10 Pulmonary fibrosis, unspecified; Z51.5 Encounter for palliative care; Z20.828 Contact with and (suspected) exposure to other viral communicable diseases; Y93.89 Activity, other specified; Z90.49 Acquired absence of other specified parts of digestive tract; Z79.891 Long term (current) use of opiate analgesic; Z79.899 Other long term (current) drug therapy; Z79.01 Long term (current) use of anticoagulants; Z99.81 Dependence on supplemental oxygen; Y92.89 Other specified places as the place of occurrence of the external cause; Y99.8 Other external cause status; Z68.25 Body mass index [BMI] 25.0-25.9, adult
CPT/HCPCS: 10879